=== PATIENT | female | born 1965 | race Two or more races ===

== ENCOUNTER 2019-08-02 13:27 | Outpatient (CLI) | payer OTHER ==
[~2019-08-02 13:27] MED LIST: CATAFLAM50 MG PO; MOTRIN800 MG; ORPH100T PO; PANADOL EXTRA500 MG; PERCOCET 10-3251 TAB; TRAMADOL HCL50 MG
== END 2019-08-02 13:56 | disposition home or self-care (01) ==
LOC: SONOGRAMA 13:27 → MAMO-SONO 14:15
DX: S46.011D Strain of muscle(s) and tendon(s) of the rotator cuff of right shoulder, subsequent encounter (principal)

== ENCOUNTER 2019-11-10 15:35 | Emergency (ER) | payer OTHER ==
[~2019-11-10] VITALS: Ht 157.5 cm; Wt 95.3 kg
[2019-11-10] MEDS ORDERED: METFORMIN (16:10)
== END 2019-11-10 21:04 | disposition home or self-care (01) ==
LOC: ER 15:35
DX: R10.31 Right lower quadrant pain (principal); R10.32 Left lower quadrant pain

== ENCOUNTER → 2021-02-07 15:00 | Outpatient (CLI) | payer OTHER ==
[~2021-02-07 15:00] MED LIST changes: +METFORMIN
== END | disposition home or self-care (01) ==
LOC: PPH VACUNA 15:00
DX: Z23 Encounter for immunization (principal)

== ENCOUNTER 2023-02-15 19:02 | Emergency (ER) | payer OTHER ==
[~2023-02-15] VITALS: Ht 157.5 cm; Wt 113.4 kg
[2023-02-16] MEDS ORDERED: ZANAFLEX2 M1 PO (00:16)
== END 2023-02-16 00:22 | disposition home or self-care (01) ==
LOC: ER 19:02
PROVIDERS: General Practice
DX: R20.2 Paresthesia of skin (principal); R07.89 Other chest pain; R53.1 Weakness; I10 Essential (primary) hypertension; E03.8 Other specified hypothyroidism; E11.9 Type 2 diabetes mellitus without complications; Z79.84 Long term (current) use of oral hypoglycemic drugs
CPT/HCPCS: 36415; 70450; 71045; 72040; 93005; 96372; 99284; J2360

== ENCOUNTER 2025-02-09 07:07 | Outpatient (CLI) | payer OTHER ==
[~2025-02-09 07:07] MED LIST changes: +ZANAFLEX2 M1 PO
== END 2025-02-09 07:08 | disposition home or self-care (01) ==
LOC: NUCLEAR 07:07
PROVIDERS: ATTEND Internal Medicine
DX: R06.01 Orthopnea (principal)
CPT/HCPCS: 78452; 93017; A9500

== ENCOUNTER 2025-04-09 23:43 | Emergency (ER) | payer OTHER ==
[~2025-04-09] VITALS: Ht 157.5 cm; Wt 92.1 kg
[2025-04-10] MEDS ORDERED: KETOROLAC TROMETHAMINE 30 MG VIAL IU ONE (01:00)
[2025-04-10] MEDS ORDERED: ORPHENADRINE CITRATE 30 MG/ML AMPUL IV ONE (01:00)
[2025-04-10] MEDS ORDERED: DEXAMETHASONE SODIUM PHOSPHATE 4 MG/ML VIAL IV ONE (01:00)
[2025-04-10] MEDS ORDERED: 0.9 % SODIUM CHLORIDE 1,000 ML IV SCH (01:00)
[2025-04-10] MEDS ORDERED: DEXAMETHASONE SODIUM PHOSPHATE 4 MG/ML VIAL ONE (01:19)
[2025-04-10] MEDS ORDERED: KETOROLAC TROMETHAMINE 30 MG VIAL ONE (01:19)
[2025-04-10] MEDS ORDERED: ORPHENADRINE CITRATE 30 MG/ML AMPUL ONE (01:19)
[2025-04-10 03:06] LABS: URINE APPEARANCE Clear; URINE BILIRRUBIN Negative (NEGATIVE); URINE BLOOD Negative; URINE COLOR Yellow; URINE KETONE Trace (NEGATIVE); URINE LEUKOCYTE Trace; URINE NITRATE Negative; URINE PROTEIN Negative (NEGATIVE); URINE UROBILINOGEN 0.2 E.U./dl
[2025-04-10 03:09] LABS: URINE BACTERIA 1193.9 uL (0.0-1933); URINE EPITHELIAL CELLS 28.1 uL (0.0-38.8); URINE RBC 2.4 uL (0.0-20.8); URINE WBC 46.2 uL (0.0-23.2)
[2025-04-10 03:11] LABS: URINE CAST 0.58 uL (0.0-1.40); URINE GLUCOSE 250 MG/DL (NEGATIVE)
[2025-04-10 03:12] LABS: BASO % 0.5 % (0.1-1.2); EOS # 0.36 (0.04-0.54); EOS % 3.2 % (0.7-7.0); LYMPH # 4.30 (1.18-3.74); LYMPH % 38.4 % (19.3-53.1); MEAN PLATELET VOLUME 10.00 fl (9.4-12.4); MONO # 0.81 (0.24-0.82); MONO % 7.2 % (4.7-12.5); NEUT # 5.61 (1.56-6.13); NEUT % 50.2 % (34.0-71.1); RED CELL DISTRIBUTION WIDTH 12.0 % (11.6-14.4)
[2025-04-10 03:23] LABS: INR 0.99
[2025-04-10 03:46] LABS: ALT/SGPT 28.0 U/L (12-78); AST/SGOT 19.0 U/L (15-37); BILIRUBIN TOTAL 0.32 mg/dL (0.3-1.2); BUN CREA RATIO 15.0 (7.0-25.0); CREATININE SERUM 0.79 mg/dL (0.55-1.02); GFR 73.74; GLOBULINA 3.9 G/DL (2.4-3.5)
[2025-04-10 04:03] LABS: GLUCOSE FASTING 290.0 mg/dL (65-100); OSMOLALITY SERUM 290.0 MOSM/KG (275-295)
[2025-04-10] MEDS ORDERED: MEDROLPACK PO (04:30)
[2025-04-10] MEDS ORDERED: NORFLEX100MG PO (04:30)
[2025-04-10] MEDS ORDERED: CIPRO500 MG PO (04:30)
== END 2025-04-10 06:19 | disposition home or self-care (01) ==
LOC: ER 23:43
PROVIDERS: Physician Assistant Medical
DX: S89.81XA Other specified injuries of right lower leg, initial encounter (principal); W19.XXXA Unspecified fall, initial encounter; Y93.89 Activity, other specified; Y92.098 Other place in other non-institutional residence as the place of occurrence of the external cause; Y99.8 Other external cause status; N39.0 Urinary tract infection, site not specified; I10 Essential (primary) hypertension; E03.8 Other specified hypothyroidism; E11.9 Type 2 diabetes mellitus without complications; Z79.84 Long term (current) use of oral hypoglycemic drugs
CPT/HCPCS: 36415; 70450; 71046; 72125; 73030; 73130; 73560; 73610; 96365; 96366; 99284; J1100; J1885; J2360; J7030